=== PATIENT | female | born 1965 | race Caucasian/White ===

== ENCOUNTER 2024-05-05 04:23 | Emergency (ER) | payer OTHER ==
[2024-05-05] MEDS ORDERED: Amoxicillin/Clavulanate Pota 875 MG TAB PO ONE (04:35)
[2024-05-05] MEDS ORDERED: AMOX-CLAV 875-1 EACH PO (06:09)
[2024-05-06 05:07] LABS: HEPATITIS B SURFACE AG Negative (Negative)
== END 2024-05-05 06:00 | disposition home or self-care (01) ==
LOC: ED 04:23
PROVIDERS: Internal Medicine
DX: S51.851A Open bite of right forearm, initial encounter (principal); Z88.6 Allergy status to analgesic agent; Z88.5 Allergy status to narcotic agent; Z88.8 Allergy status to other drugs, medicaments and biological substances; Z98.890 Other specified postprocedural states; W55.81XA Bitten by other mammals, initial encounter; Y93.89 Activity, other specified; Y92.89 Other specified places as the place of occurrence of the external cause; Y99.0 Civilian activity done for income or pay